=== PATIENT | female | born 1965 | race Caucasian/White ===

== ENCOUNTER 2024-03-19 05:27 | Inpatient (IN) | payer BC ==
[2024-03-19 06:14] VITALS: BMI 41.1
[2024-03-19] MEDS: Morphine 2 MG/ML VIAL SLOW IVP SCH ×2 (06:20→11:55)
[2024-03-19] MEDS ORDERED: Diazepam 5 MG TAB PO PRN (06:32)
[2024-03-19 08:48] LABS: #Basophils 0.04 10x3/uL (0.0-0.2); %Basophils 0.3 % (0.0-1.0); %Eosinophils 0.7 % (0.0-10.0); %Lymphocytes 20.3 % (21.0-51.0); %Monocytes 6.5 % (0.0-10.0); %Neutrophils 71.8 % (42.0-75.0); Hematocrit 34.3 % (36.0-47.0); Hemoglobin 11.7 g/dL (12.0-16.0); Mean Corpuscular HGB CONC 34.1 g/dL (32.0-36.0); Mean Corpuscular Hemoglobin 31.9 pg (27.0-31.0); Mean Corpuscular Volume 93.5 fL (78.0-98.0); Mean Platelet Volume 10.5 fL (7.4-10.4); Platelet Count 251 10x3/uL (130-400); RBC Distribution Width 12.8 % (11.5-14.5); Red Blood Cell (RBC) Count 3.67 mill/uL (4.20-5.40)
[2024-03-19 09:05] LABS: Anion Gap 14 mmol/L (10-20); BUN (Urea Nitrogen) 16 mg/dL (9.8-20.1); Calc. Creatinine Clearance 90 mL/min (70-130); Calcium 9.1 mg/dL (7.8-10.44); Carbon Dioxide 21 mmol/L (22-29); Chloride 103 mmol/L (98-107); Estimated GFR 53; Glucose 124 mg/dL (70-105); Potassium 4.9 mmol/L (3.5-5.1); Sodium 133 mmol/L (136-145)
[2024-03-19] MEDS: Gabapentin 300 MG CAP PO SCH ×2 (09:43→16:16)
[2024-03-19] MEDS: Pantoprazole 40 MG DR.TAB PO SCH (09:43)
[2024-03-19] MEDS: Morphine 2 MG/ML VIAL SLOW IVP PRN (09:44)
[2024-03-19] MEDS ORDERED: Morphine 2 MG/ML VIAL SLOW IVP PRN (10:14)
[2024-03-19] MEDS ORDERED: Morphine 4 MG/ML VIAL SLOW IVP PRN (10:14)
[2024-03-19] MEDS ORDERED: hydrALAZINE 20 MG/ML VIAL SLOW IVP PRN (11:43)
[2024-03-19] MEDS ORDERED: Ondansetron PF 4 MG/2 ML Vial IVP PRN (11:43)
[2024-03-19] MEDS ORDERED: Acetaminophen 325 MG TAB PO PRN (11:43)
[2024-03-19] MEDS: Dexamethasone 4 MG TAB PO SCH (11:56)
[2024-03-19] MEDS ORDERED: Dexamethasone 4 MG TAB PO SCH (14:00)
[2024-03-19] MEDS: Morphine 4 MG/ML VIAL SLOW IVP PRN ×2 (16:15→20:51)
[2024-03-19] MEDS: metFORMIN 500 MG TAB PO SCH (16:16)
[2024-03-19] MEDS: Acetaminophen/Codeine 30-300mg Tablet PO PRN (18:10)
[2024-03-19] MEDS: Ketorolac Tromethamine 30 MG (1 mL) VIAL IVP SCH (18:15)
[2024-03-19] MEDS: Dicyclomine 20 MG TAB PO SCH (18:15)
[2024-03-19] MEDS: DULoxetine 60 MG CAP PO SCH (20:50)
[2024-03-19] MEDS: tiZANidine HCl 4 MG TAB PO PRN (20:50)
[2024-03-19] MEDS: HYDROcodone/Acetaminophen 5/325 mg Tablet PO PRN (20:51)
[2024-03-19] MEDS: Insulin Glargine 30 UNITS/0.3 ML VIAL SC SCH (20:51)
[2024-03-19] MEDS: QUEtiapine 300 MG TAB PO SCH (20:51)
[2024-03-20 05:18] LABS: #Basophils Less than 0.03 10x3/uL (0.0-0.2); #Eosinophils Less than 0.03 10x3/uL (0.0-0.7); %Basophils 0.1 % (0.0-1.0); %Lymphocytes 18.8 % (21.0-51.0); %Monocytes 1.6 % (0.0-10.0); %Neutrophils 78.4 % (42.0-75.0); Hematocrit 35.7 % (36.0-47.0); Mean Corpuscular HGB CONC 33.6 g/dL (32.0-36.0); Mean Corpuscular Hemoglobin 31.7 pg (27.0-31.0); Mean Corpuscular Volume 94.4 fL (78.0-98.0); Mean Platelet Volume 10.4 fL (7.4-10.4); Platelet Count 256 10x3/uL (130-400); RBC Distribution Width 12.5 % (11.5-14.5); Red Blood Cell (RBC) Count 3.78 mill/uL (4.20-5.40)
[2024-03-20 05:31] LABS: Anion Gap 17 mmol/L (10-20); BUN (Urea Nitrogen) 20 mg/dL (9.8-20.1); Calc. Creatinine Clearance 91 mL/min (70-130); Calcium 9.4 mg/dL (7.8-10.44); Carbon Dioxide 18 mmol/L (22-29); Cardiac Risk 3.4 (Less than 4.5); Chloride 100 mmol/L (98-107); Cholesterol 191 mg/dl (< 200 Desired); Estimated GFR 53; Glucose 229 mg/dL (70-105); HDL Cholesterol 56 mg/dL (>60 Neg Risk); LDL Cholesterol, Calculated 121 mg/dL; Potassium 5.2 mmol/L (3.5-5.1); Sodium 130 mmol/L (136-145); Triglycerides 70 mg/dL (Less than 150)
[2024-03-20] MEDS ORDERED: Vancomycin 1 GM VIAL ONE ×2 (07:41→08:55)
[2024-03-20] MEDS ORDERED: Bacitracin Zinc Ointment 30 gm TUBE ONE (07:42)
[2024-03-20] MEDS ORDERED: Thrombin 5000 UNITS/5 ML VIAL ONE (07:42)
[2024-03-20] MEDS ORDERED: Lidocaine 1% PF 5 ML VIAL ONE (07:46)
[2024-03-20] MEDS ORDERED: Fentanyl 250 MCG/5 ML VIAL ONE (07:46)
[2024-03-20] MEDS ORDERED: Rocuronium Bromide 10 MG/ML (10ML VIAL) ONE (07:46)
[2024-03-20] MEDS ORDERED: PROPOFOL 20 ML ONE (07:46)
[2024-03-20] MEDS ORDERED: Clindamycin/D5W 900 mg/50 ml Premix Bag ONE (08:20)
[2024-03-20] MEDS ORDERED: KETAMINE 100 MG/ML (5ML VIAL) ONE (08:35)
[2024-03-20] MEDS ORDERED: LevoFLOXacin 250 mg/D5W 250 MG in Premix 1 BAG IVPB SCH (08:45)
[2024-03-20] MEDS ORDERED: Dexamethasone 20 MG/5 ML VIAL ONE (09:04)
[2024-03-20] MEDS ORDERED: Vancomycin (BATCH) 2 GM in Premix 1 BAG IVPB SCH (09:15)
[2024-03-20] MEDS ORDERED: Esmolol 100 MG/10 ML VIAL ONE (09:33)
[2024-03-20] MEDS ORDERED: Vecuronium 10 MG VIAL ONE (10:39)
[2024-03-20] MEDS ORDERED: Dexmedetomidine 200 MCG/2 ML VIAL ONE (11:47)
[2024-03-20] MEDS ORDERED: Lidocaine 2% PF 5 ML VIAL ONE (12:25)
[2024-03-20] MEDS ORDERED: Ondansetron PF 4 MG/2 ML Vial ONE (12:25)
[2024-03-20] MEDS ORDERED: SUGAMMADEX SODIUM 200 MG/2 ML VIAL ONE (12:31)
[2024-03-20] MEDS ORDERED: Promethazine HCl 25 MG/ML VIAL IM PRN ×2 (12:51→12:54)
[2024-03-20] MEDS ORDERED: Morphine Sulfate 2 MG/ML SYRINGE SLOW IVP PRN (12:51)
[2024-03-20] MEDS ORDERED: HYDROmorphone 2 MG/ML VIAL SLOW IVP PRN (12:51)
[2024-03-20] MEDS ORDERED: Ondansetron HCl/PF 4 MG/2 ML Vial IVP PRN (12:51)
[2024-03-20] MEDS ORDERED: PACU-Morphine 4MG/ML VIAL SLOW IVP PRN (12:51)
[2024-03-20] MEDS ORDERED: diphenhydrAMINE 50 MG/ML VIAL IVP PRN (12:54)
[2024-03-20] MEDS ORDERED: HYDROmorphone/PF 10 MG in Sodium Chloride 0.9% 99 ML IV PRN (12:54)
[2024-03-20] MEDS ORDERED: diphenhydrAMINE 25 MG CAP PO PRN (12:54)
[2024-03-20] MEDS ORDERED: diphenhydrAMINE 50 MG/ML VIAL IM PRN (12:54)
[2024-03-20] MEDS ORDERED: Naloxone HCl 0.4 mg/ml Vial IV PRN (12:54)
[2024-03-20] MEDS ORDERED: fentaNYL 50 mcg/mL 1 mL Vial ONE (12:59)
[2024-03-20] MEDS ORDERED: Communication Order-Pharmacy FS SCH (13:00)
[2024-03-20] MEDS ORDERED: Milk Of Magnesia 30 ML UDCUP PO PRN (14:20)
[2024-03-20] MEDS ORDERED: hydrALAZINE 20 MG/ML VIAL ONE (14:46)
[2024-03-20] MEDS: Amlodipine 5 MG TAB PO SCH (14:49)
[2024-03-20] MEDS: Rosuvastatin 20 MG TAB PO SCH (14:50)
[2024-03-20] MEDS: Pantoprazole 40 MG DR.TAB PO SCH (14:50)
[2024-03-20] MEDS: Ferrous Sulfate 325 MG TAB PO SCH (14:50)
[2024-03-20] MEDS: Lisinopril 20 MG TAB PO SCH (14:50)
[2024-03-20] MEDS: Escitalopram Oxalate 20 mg Tablet PO SCH (14:50)
[2024-03-20] MEDS: Sodium Chloride 0.9% 1,000 ML IV SCH (18:32)
[2024-03-20] MEDS: Clindamycin/D5W 900 MG in Premix 1 BAG IVPB SCH (18:33)
[2024-03-20] MEDS: Vancomycin 1 GM in Premix 1 BAG IVPB SCH (21:11)
[2024-03-21 06:28] LABS: #Basophils 0.04 10x3/uL (0.0-0.2); #Eosinophils Less than 0.03 10x3/uL (0.0-0.7); %Basophils 0.2 % (0.0-1.0); %Lymphocytes 5.4 % (21.0-51.0); %Monocytes 5.5 % (0.0-10.0); %Neutrophils 87.6 % (42.0-75.0); Hematocrit 30.8 % (36.0-47.0); Hemoglobin 10.3 g/dL (12.0-16.0); Mean Corpuscular HGB CONC 33.4 g/dL (32.0-36.0); Mean Corpuscular Volume 95.7 fL (78.0-98.0); Platelet Count 224 10x3/uL (130-400); RBC Distribution Width 12.5 % (11.5-14.5); Red Blood Cell (RBC) Count 3.22 mill/uL (4.20-5.40)
[2024-03-21 06:42] LABS: Anion Gap 13 mmol/L (10-20); BUN (Urea Nitrogen) 22 mg/dL (9.8-20.1); Calc. Creatinine Clearance 104 mL/min (70-130); Calcium 8.8 mg/dL (7.8-10.44); Carbon Dioxide 20 mmol/L (22-29); Chloride 103 mmol/L (98-107); Estimated GFR 63; Glucose 240 mg/dL (70-105); Potassium 5.5 mmol/L (3.5-5.1); Sodium 130 mmol/L (136-145); Vancomycin, Random 22.6 ug/mL (See Comment)
[2024-03-21] MEDS ORDERED: Diazepam 5 MG TAB PO PRN (08:17)
[2024-03-21] MEDS: HYDROcodone/Acetaminophen 10/325 mg Tablet PO PRN (12:46)
[2024-03-21] MEDS: Vancomycin (BATCH) 1.5 GM in Premix 1 BAG IVPB SCH (20:50)
[2024-03-22 04:37] LABS: #Basophils 0.04 10x3/uL (0.0-0.2); #Eosinophils Less than 0.03 10x3/uL (0.0-0.7); %Basophils 0.2 % (0.0-1.0); %Eosinophils 0.1 % (0.0-10.0); %Lymphocytes 4.4 % (21.0-51.0); %Monocytes 6.7 % (0.0-10.0); %Neutrophils 86.9 % (42.0-75.0); Hematocrit 30.3 % (36.0-47.0); Mean Corpuscular Hemoglobin 32.2 pg (27.0-31.0); Mean Corpuscular Volume 97.4 fL (78.0-98.0); Mean Platelet Volume 11.1 fL (7.4-10.4); Platelet Count 207 10x3/uL (130-400); RBC Distribution Width 12.8 % (11.5-14.5); Red Blood Cell (RBC) Count 3.11 mill/uL (4.20-5.40)
[2024-03-22 05:18] LABS: Anion Gap 15 mmol/L (10-20); BUN (Urea Nitrogen) 31 mg/dL (9.8-20.1); Calc. Creatinine Clearance 72 mL/min (70-130); Calcium 8.2 mg/dL (7.8-10.44); Carbon Dioxide 17 mmol/L (22-29); Chloride 101 mmol/L (98-107); Estimated GFR 41; Glucose 195 mg/dL (70-105); Potassium 5.2 mmol/L (3.5-5.1); Sodium 128 mmol/L (136-145)
[2024-03-22 05:24] LABS: Vancomycin, Random 32.5 ug/mL (See Comment)
[2024-03-22 19:00] LABS: Vancomycin, Random 24.3 ug/mL (See Comment)
[2024-03-22] MEDS: QUEtiapine 300 MG TAB PO SCH (20:50)
[2024-03-22] MEDS ORDERED: Vancomycin HCl 750 MG in Sodium Chloride 0.9% 250 ML 250 ML IVPB SCH (23:59)
[2024-03-23 06:01] LABS: Anion Gap 14 mmol/L (10-20); BUN (Urea Nitrogen) 33 mg/dL (9.8-20.1); Calc. Creatinine Clearance 90 mL/min (70-130); Calcium 8.5 mg/dL (7.8-10.44); Carbon Dioxide 19 mmol/L (22-29); Chloride 105 mmol/L (98-107); Estimated GFR 53; Glucose 174 mg/dL (70-105); Potassium 5.3 mmol/L (3.5-5.1); Sodium 133 mmol/L (136-145)
[2024-03-23 06:04] LABS: #Basophils 0.04 10x3/uL (0.0-0.2); #Eosinophils Less than 0.03 10x3/uL (0.0-0.7); %Basophils 0.3 % (0.0-1.0); %Eosinophils 0.1 % (0.0-10.0); %Lymphocytes 10.4 % (21.0-51.0); %Monocytes 7.9 % (0.0-10.0); %Neutrophils 79.9 % (42.0-75.0); Hematocrit 31.6 % (36.0-47.0); Hemoglobin 10.5 g/dL (12.0-16.0); Mean Corpuscular HGB CONC 33.2 g/dL (32.0-36.0); Mean Corpuscular Hemoglobin 31.8 pg (27.0-31.0); Mean Corpuscular Volume 95.8 fL (78.0-98.0); Mean Platelet Volume 11.8 fL (7.4-10.4); Platelet Count 192 10x3/uL (130-400); RBC Distribution Width 12.7 % (11.5-14.5)
[2024-03-23] MEDS: Vancomycin HCl 750 MG in Sodium Chloride 0.9% 250 ML 250 ML IVPB SCH (09:03)
[2024-03-23 13:57] LABS: Bilirubin Negative (Negative); Blood, Urine 2+ (Negative); CAUTI Indications for Culture Alt mental st,lethar; Clarity Clear (Clear); Glucose, Urine (Dipstick) Normal (Negative); Ketone, Urine Negative (Negative); Leukocyte Negative Leu/uL (Negative); Nitrite Negative (Negative); Protein, Urine (Dipstick) Negative (Neg-Trace); RBC/HPF 0-3 HPF (0-3); Specific Gravity, Urine 1.008 (1.002-1.036); Squamous Epithelial 0-3 HPF (0-3); Urobilinogen Normal mg/dL (Less than 2); WBC/HPF 0-3 HPF (0-3)
[2024-03-23 13:58] LABS: Bacteria/HPF Rare-Few HPF (None Seen)
[2024-03-23 13:59] LABS: Urine Culture Reflex No No
[2024-03-23] MEDS: HYDROcodone/Acetaminophen 5/325 mg Tablet PO PRN (18:35)
[2024-03-24] MEDS: Vancomycin 1 GM in Premix 1 BAG IVPB SCH (00:06)
[2024-03-24 06:54] LABS: Vancomycin, Random 38.7 ug/mL (See Comment)
[2024-03-24] MEDS ORDERED: Losartan 25 MG TAB PO SCH (11:10)
[2024-03-24] MEDS ORDERED: Dicyclomine 10 MG CAP PO PRN (14:35)
[2024-03-24] MEDS: Losartan 25 MG TAB PO SCH (15:18)
[2024-03-24 15:41] LABS: ALT (SGPT) 381 U/L (8-55); AST (SGOT) 309 U/L (5-34); Albumin 2.6 g/dL (3.5-5.0); Alkaline Phosphatase 108 U/L (40-110); Anion Gap 13 mmol/L (10-20); BUN (Urea Nitrogen) 19 mg/dL (9.8-20.1); Bilirubin, Total 0.7 mg/dL (0.2-1.2); Calc. Creatinine Clearance 129 mL/min (70-130); Calcium 8.4 mg/dL (7.8-10.44); Carbon Dioxide 21 mmol/L (22-29); Chloride 105 mmol/L (98-107); Estimated GFR 82; Globulin 3.3 g/dL (2.4-3.5); Glucose 151 mg/dL (70-105); Magnesium 1.6 mg/dL (1.6-2.6); Phosphorus 2.2 mg/dL (2.3-4.7); Potassium 4.7 mmol/L (3.5-5.1); Protein, Total 5.9 g/dL (6.0-8.3); Sodium 134 mmol/L (136-145)
[2024-03-24] MEDS ORDERED: Electrolyte Replacement Protocol 1 EACH FS PRN (20:36)
[2024-03-24] MEDS ORDERED: Dextrose 50% Abboject 50 ML SYRINGE SLOW IVP PRN (20:49)
[2024-03-24] MEDS ORDERED: Dextrose 5% in Water 1,000 ML IV PRN (20:49)
[2024-03-24] MEDS ORDERED: Glucagon 1 MG/ML KIT IM PRN (20:49)
[2024-03-24] MEDS: Sodium Phosphate 15 MMOL in Sodium Chloride 0.9% 250 ML 250 ML IVPB SCH (23:22)
[2024-03-24] MEDS: Magnesium 2 GM/50 ML(in water) 2 GM in Premix 1 BAG IVPB SCH (23:31)
[2024-03-25] MEDS: Senokot S 8.6-50 MG TAB PO SCH (00:05)
[2024-03-25] MEDS: Multivit, Therapeutic 1 TAB PO SCH (00:08)
[2024-03-25] MEDS: QUEtiapine 25 MG TAB PO SCH (00:09)
[2024-03-25] MEDS: Morphine 2 MG/ML VIAL SLOW IVP PRN (01:14)
[2024-03-25] MEDS: Ketorolac Tromethamine 30 MG (1 mL) VIAL IVP PRN (02:18)
[2024-03-25 04:00] LABS: #Basophils 0.03 10x3/uL (0.0-0.2); %Basophils 0.3 % (0.0-1.0); %Eosinophils 1.3 % (0.0-10.0); %Lymphocytes 7.5 % (21.0-51.0); %Neutrophils 84.3 % (42.0-75.0); Hematocrit 27.9 % (36.0-47.0); Hemoglobin 9.5 g/dL (12.0-16.0); Mean Corpuscular HGB CONC 34.1 g/dL (32.0-36.0); Mean Corpuscular Hemoglobin 31.8 pg (27.0-31.0); Mean Corpuscular Volume 93.3 fL (78.0-98.0); Mean Platelet Volume 11.5 fL (7.4-10.4); Platelet Count 183 10x3/uL (130-400); RBC Distribution Width 12.7 % (11.5-14.5); Red Blood Cell (RBC) Count 2.99 mill/uL (4.20-5.40)
[2024-03-25 04:17] LABS: ALT (SGPT) 289 U/L (8-55); AST (SGOT) 168 U/L (5-34); Albumin 2.5 g/dL (3.5-5.0); Alkaline Phosphatase 107 U/L (40-110); Anion Gap 12 mmol/L (10-20); BUN (Urea Nitrogen) 14 mg/dL (9.8-20.1); Bilirubin, Total 0.8 mg/dL (0.2-1.2); Calc. Creatinine Clearance 138 mL/min (70-130); Calcium 8.3 mg/dL (7.8-10.44); Carbon Dioxide 22 mmol/L (22-29); Chloride 103 mmol/L (98-107); Estimated GFR 88; Globulin 3.1 g/dL (2.4-3.5); Glucose 151 mg/dL (70-105); Potassium 4.4 mmol/L (3.5-5.1); Protein, Total 5.6 g/dL (6.0-8.3); Sodium 133 mmol/L (136-145)
[2024-03-25] MEDS: Losartan 25 MG TAB PO SCH (09:01)
[2024-03-25] MEDS: tiZANidine HCl 4 MG TAB PO PRN (09:01)
[2024-03-25] MEDS: DULoxetine 60 MG CAP PO SCH (09:02)
[2024-03-25] MEDS ORDERED: Methocarbamol 500 MG TAB PO PRN (09:30)
[2024-03-25] MEDS: Enoxaparin 40 MG (0.4 mL) SYRINGE SC SCH (11:59)
[2024-03-25] MEDS: Ondansetron ODT 4 MG TAB PO PRN (17:35)
[2024-03-25] MEDS: cefTRIAXone\\ROCEPHIN 1 GM in Sodium Chloride 0.9% 100 ML IVPB SCH (19:31)
[2024-03-25] MEDS: Sodium Chloride 0.9% 1,000 ML IV SCH (19:33)
[2024-03-25] MEDS: metroNIDAZOLE 500 MG TAB PO SCH (19:57)
[2024-03-25] MEDS ORDERED: Amlodipine 5 MG TAB PO SCH (21:00)
[2024-03-26 04:46] LABS: #Basophils 0.08 10x3/uL (0.0-0.2); %Basophils 0.6 % (0.0-1.0); %Eosinophils 1.8 % (0.0-10.0); %Lymphocytes 9.1 % (21.0-51.0); %Monocytes 6.7 % (0.0-10.0); %Neutrophils 77.4 % (42.0-75.0); Hematocrit 28.7 % (36.0-47.0); Hemoglobin 9.8 g/dL (12.0-16.0); Mean Corpuscular HGB CONC 34.1 g/dL (32.0-36.0); Mean Corpuscular Hemoglobin 31.7 pg (27.0-31.0); Mean Corpuscular Volume 92.9 fL (78.0-98.0); Mean Platelet Volume 10.9 fL (7.4-10.4); Platelet Count 206 10x3/uL (130-400); RBC Distribution Width 12.6 % (11.5-14.5); Red Blood Cell (RBC) Count 3.09 mill/uL (4.20-5.40)
[2024-03-26 05:02] LABS: Vancomycin, Random 17.2 ug/mL (See Comment)
[2024-03-26 05:04] LABS: Phosphorus 2.9 mg/dL (2.3-4.7)
[2024-03-26 05:11] LABS: ALT (SGPT) 180 U/L (8-55); AST (SGOT) 63 U/L (5-34); Albumin 2.4 g/dL (3.5-5.0); Alkaline Phosphatase 98 U/L (40-110); Anion Gap 13 mmol/L (10-20); BUN (Urea Nitrogen) 11 mg/dL (9.8-20.1); Bilirubin, Total 0.5 mg/dL (0.2-1.2); Calc. Creatinine Clearance 145 mL/min (70-130); Calcium 8.4 mg/dL (7.8-10.44); Carbon Dioxide 21 mmol/L (22-29); Chloride 105 mmol/L (98-107); Estimated GFR 93; Globulin 3.3 g/dL (2.4-3.5); Glucose 143 mg/dL (70-105); Magnesium 1.4 mg/dL (1.6-2.6); Potassium 4.2 mmol/L (3.5-5.1); Protein, Total 5.7 g/dL (6.0-8.3); Sodium 135 mmol/L (136-145)
[2024-03-26] MEDS: Magnesium Sulfate In Water 4 GM in Premix 1 BAG IVPB SCH (06:09)
[2024-03-26] MEDS: Enoxaparin 40 MG (0.4 mL) SYRINGE SC SCH (10:25)
[2024-03-26] MEDS: hydrALAZINE 20 MG/ML VIAL SLOW IVP PRN (10:26)
[2024-03-26] MEDS: Ondansetron PF 4 MG/2 ML Vial IVP PRN (10:26)
[2024-03-26] MEDS: DULoxetine 30 MG CAP PO SCH (11:15)
[2024-03-26] MEDS: Ergocalciferol 1.25 MG(50,000 UNITS) CAP PO SCH (11:15)
[2024-03-26] MEDS: Escitalopram Oxalate 10 mg Tablet PO SCH (11:15)
[2024-03-26] MEDS: Amlodipine 5 MG TAB PO SCH ×2 (16:29→20:14)
[2024-03-26] MEDS: Docusate 100 MG CAP PO SCH (20:15)
[2024-03-26] MEDS: diphenhydrAMINE 30 GM TUBE TOP SCH (20:39)
[2024-03-26] MEDS ORDERED: Vancomycin (BATCH) 1.5 GM in Premix 1 BAG IVPB SCH (21:00)
[2024-03-27 08:11] LABS: ALT (SGPT) 115 U/L (8-55); AST (SGOT) 33 U/L (5-34); Albumin 2.5 g/dL (3.5-5.0); Alkaline Phosphatase 82 U/L (40-110); Anion Gap 13 mmol/L (10-20); BUN (Urea Nitrogen) 7 mg/dL (9.8-20.1); Bilirubin, Total 0.4 mg/dL (0.2-1.2); Calc. Creatinine Clearance 159 mL/min (70-130); Calcium 8.4 mg/dL (7.8-10.44); Carbon Dioxide 23 mmol/L (22-29); Chloride 105 mmol/L (98-107); Estimated GFR 100; Globulin 3.2 g/dL (2.4-3.5); Glucose 111 mg/dL (70-105); Potassium 3.7 mmol/L (3.5-5.1); Protein, Total 5.7 g/dL (6.0-8.3); Sodium 137 mmol/L (136-145)
[2024-03-27 08:12] LABS: Magnesium 1.5 mg/dL (1.6-2.6); Phosphorus 3.2 mg/dL (2.3-4.7)
[2024-03-27 08:17] LABS: Hematocrit 27.7 % (36.0-47.0); Hemoglobin 9.8 g/dL (12.0-16.0); Mean Corpuscular HGB CONC 35.4 g/dL (32.0-36.0); Mean Corpuscular Hemoglobin 32.1 pg (27.0-31.0); Mean Corpuscular Volume 90.8 fL (78.0-98.0); Mean Platelet Volume 11.2 fL (7.4-10.4); Platelet Count 227 10x3/uL (130-400); RBC Distribution Width 12.7 % (11.5-14.5); Red Blood Cell (RBC) Count 3.05 mill/uL (4.20-5.40)
[2024-03-27 09:07] LABS: Band 5 % (5-11); Eosinophils 5 % (0-10); Large Platelets 2.3 % (0-5); Lymphocytes 9 % (21-51); Metamyelocyte 2 % (0-0); Monocytes 6 % (0-10); Neutrophil 72 % (42-75); Platelet Adequacy Comment Platelets Normal; Polychromasia SLIGHT = 2-3 cells HPF (0-2)
[2024-03-27] MEDS: Magnesium 2 GM/50 ML(in water) 2 GM in Premix 1 BAG IVPB SCH (09:35)
[2024-03-27] MEDS: Loratadine 10 MG TAB PO SCH (13:02)
[2024-03-27] MEDS: Famotidine 20 MG TAB PO SCH (21:35)
[2024-03-28] MEDS: Labetalol HCl 100 MG/20 ML VIAL SLOW IVP SCH (05:40)
[2024-03-28 06:23] LABS: Magnesium 1.4 mg/dL (1.6-2.6)
[2024-03-28] MEDS: Magnesium Sulfate In Water 4 GM in Premix 1 BAG IVPB SCH (08:05)
[2024-03-28] MEDS: Loratadine 10 MG TAB PO SCH (08:07)
[2024-03-28] MEDS: Losartan 25 MG TAB PO SCH (08:07)
[2024-03-28] MEDS: Montelukast Sodium 10 mg Tablet PO SCH (12:26)
[2024-03-28] MEDS: Loperamide HCl 2 MG CAP PO PRN (14:45)
[2024-03-28] MEDS: hydrOXYzine 25 MG TAB PO SCH (14:45)
[2024-03-28] MEDS ORDERED: hydrALAZINE 25 MG TAB PO SCH (15:00)
[2024-03-28] MEDS: Insulin Regular, Human 100 UNIT/ML 10 ML VIAL SC PRN (16:53)
[2024-03-28] MEDS: Enoxaparin 40 MG (0.4 mL) SYRINGE SC SCH (20:07)
[2024-03-29 05:04] LABS: Magnesium 1.6 mg/dL (1.6-2.6)
[2024-03-29] MEDS: Magnesium 2 GM/50 ML(in water) 2 GM in Premix 1 BAG IVPB SCH (09:33)
[2024-03-29 14:33] VITALS: BMI 41.9
[2024-03-29] MEDS: predniSONE 20 MG TAB PO SCH (17:51)
[2024-03-29] MEDS: Montelukast Sodium 10 mg Tablet PO SCH (21:27)
[2024-03-30] MEDS: predniSONE 20 MG TAB PO SCH (08:51)
[2024-03-30] MEDS ORDERED: Electrolyte Replacement Protocol FS PRN (15:30)
[2024-03-30] MEDS: Insulin Regular, Human 100 UNIT/ML 10 ML VIAL SC PRN (21:19)
[2024-03-31] MEDS: metFORMIN 500 MG TAB PO SCH ×2 (08:36→16:37)
[2024-04-01] MEDS: predniSONE 20 MG TAB PO SCH (09:27)
[2024-04-02 11:53] VITALS: BP 154/71; TEMP 98.6
== END 2024-04-02 13:07 | DRG 28 ==
LOC: OBS 05:27 → OBSVTOIN 03-20 14:15 → 2NO 03-20 17:00
PROVIDERS: ADMIT Internal Medicine; ATTEND Internal Medicine
PROC: 0RG20AJ Fusion of 2 or more Cervical Vertebral Joints with Interbody Fusion Device, Posterior Approach, Anterior Column, Open Approach (ICD-10-PCS; principal; 2024-03-20)
PROC: 00NW0ZZ Release Cervical Spinal Cord, Open Approach (ICD-10-PCS; 2024-03-20)
PROC: 0RG20K1 Fusion of 2 or more Cervical Vertebral Joints with Nonautologous Tissue Substitute, Posterior Approach, Posterior Column, Open Approach (ICD-10-PCS; 2024-03-20)
DX: S14.124A Central cord syndrome at C4 level of cervical spinal cord, initial encounter (principal); G93.41 Metabolic encephalopathy; J96.01 Acute respiratory failure with hypoxia; E87.1 Hypo-osmolality and hyponatremia; N17.9 Acute kidney failure, unspecified; Z68.41 Body mass index [BMI] 40.0-44.9, adult; M48.02 Spinal stenosis, cervical region; S14.125A Central cord syndrome at C5 level of cervical spinal cord, initial encounter; S14.126A Central cord syndrome at C6 level of cervical spinal cord, initial encounter; I95.9 Hypotension, unspecified; K58.9 Irritable bowel syndrome, unspecified; E66.01 Morbid (severe) obesity due to excess calories; E78.00 Pure hypercholesterolemia, unspecified; R20.2 Paresthesia of skin; R20.0 Anesthesia of skin; D72.829 Elevated white blood cell count, unspecified; M50.322 Other cervical disc degeneration at C5-C6 level; I12.9 Hypertensive chronic kidney disease with stage 1 through stage 4 chronic kidney disease, or unspecified chronic kidney disease; L29.9 Pruritus, unspecified; E11.22 Type 2 diabetes mellitus with diabetic chronic kidney disease; E83.39 Other disorders of phosphorus metabolism; R74.01 Elevation of levels of liver transaminase levels; K59.00 Constipation, unspecified; E87.5 Hyperkalemia; N18.2 Chronic kidney disease, stage 2 (mild); G47.33 Obstructive sleep apnea (adult) (pediatric); M50.221 Other cervical disc displacement at C4-C5 level; H69.81 Other specified disorders of Eustachian tube, right ear; L27.0 Generalized skin eruption due to drugs and medicaments taken internally; I08.3 Combined rheumatic disorders of mitral, aortic and tricuspid valves; Z79.899 Other long term (current) drug therapy; Z88.0 Allergy status to penicillin; Z88.8 Allergy status to other drugs, medicaments and biological substances; Z98.84 Bariatric surgery status; W07.XXXA Fall from chair, initial encounter
CPT/HCPCS: 36415; 36416; 70551; 71045; 72020; 72141; 80048; 80053; 80061; 80202; 81001; 82140; 82565; 83735; 83880; 84100; 85025; 85379; 93306; 93880; 94660; C1713; J0360; J0696; J1100; J1171; J1650; J1815; J1885; J1956; J2272; J2405; J2704; J3010; J3370; J3475; J3490; J7030; J7050; J7512; J8540; Q0162